=== PATIENT | female | born 1940 | race Caucasian/White ===

== ENCOUNTER 2017-01-10 08:17 | Emergency (ER) | payer OTHER ==
[~2017-01-10] VITALS: Ht 170.2 cm; Wt 80.0 kg
[2017-01-10 08:20] VITALS: BP 158/79; PULSE 76; RESP 18; TEMP 98.4; O2SAT 96
--- NOTE | 2017-01-10 08:38 | PD ---
HPI Chief Complaint: Edema Time Seen by Provider: 08:26 Travel History International Travel<30 days: No Contact w/Intl Traveler<30days: No History of Present Illness HPI Patient is a 76-year-old female with history of hypertension, DVT, since emergency room with complaints of left calf pain and swelling. Patient reports that for the past 3 days, she has noticed increased pain to her left calf with ambulation. Patient reports that pain was so severe initially, it was difficult for her to ambulate. Reports no recent trauma - reports that the only trauma she could think of was that she fell about 1 month ago and caused bruising to her right knee and left thigh. Reports no other trauma other than that. Patient with concerns as about 10-12 years ago, she had a blood clot to her right lower extremity. Patient unsure if she was on any anticoagulation at that time, reports that her doctor gave her some medicine, and symptoms had resolved. Patient reports that should similar symptoms in the past when she had pain to her right lower extremity and was concerned that she may have a DVT. Patient denies any recent travels, denies any long car rides or any recent surgeries or prolonged immobilization. Patient denies any chest pain or shortness of breath at this time. Patient currently not on anticoagulants. 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) Hypertension: Yes Past Surgical History Surgical History: No Previous Surgery Social History Alcohol Use: No Tobacco Use: No Substance Use: No Allergies-Medications (Allergen,Severity, Reaction): Coded Allergies: Keflex (Verified Allergy, Severe, Rash, 01/10/17) Reported Meds & Prescriptions Reported Meds & Active Scripts Active Reported Aspirin 81 Mg Tabdr 81 Mg PO DAILY Lipitor (Atorvastatin Calcium) 40 Mg Tab 40 Mg PO HS Estradiol 0.5 Mg Tab 0.5 Mg PO DAILY Metoprolol Succinate ER 24 HR (Metoprolol Succinate) 25 Mg Tab 25 Mg PO DAILY Review of Systems General / Constitutional: No: Fever Eyes: No: Visual changes HENT: No: Headaches Cardiovascular: No: Chest Pain or Discomfort Respiratory: No: Cough, Shortness of Breath Gastrointestinal: No: Abdominal Pain Genitourinary: No: Dysuria Musculoskeletal: Positive: Cramping, Pain Skin: No Rash Neurologic: No: Weakness Psychiatric: No: Depression Endocrine: No: Polydipsia Hematologic/Lymphatic: No: Easy Bruising Physical Exam Narrative GENERAL: nad, nontoxic Skin: warm/dry with no signs of infection/cellulitis HEAD: Atraumatic. Normocephalic. EYES: Pupils equal and round. No scleral icterus. No injection or drainage. ENT: No nasal bleeding or discharge. Mucous membranes pink and moist. NECK: Trachea midline. No JVD. CARDIOVASCULAR: Regular rate and rhythm. No murmur appreciated. RESPIRATORY: No accessory muscle use. Clear to auscultation. Breath sounds equal bilaterally. GASTROINTESTINAL: Abdomen soft, non-tender, nondistended. Hepatic and splenic margins not palpable. MUSCULOSKELETAL: No obvious deformities. No clubbing. No cyanosis. No edema. Patient with pain to left calf. NEUROLOGICAL: Awake and alert. No obvious cranial nerve deficits. Motor grossly within normal limits. Normal speech. PSYCHIATRIC: Appropriate mood and affect; insight and judgment normal. Data Data Last Documented VS Vital Signs Date Time Temp Pulse Resp B/P Pulse Ox O2 Delivery O2 Flow Rate FiO2 01/10/17 08:37 01/10/17 08:20 98.4 76 18 96 Room Air Orders Basic Metabolic Panel (Bmp) (01/10/17 08:30) Complete Blood Count With Diff (01/10/17 08:30) Prothrombin Time / Inr (Pt) (01/10/17 08:30) Act Partial Throm Time (Ptt) (01/10/17 08:30) Us Leg Venous Doppler Bilat (01/10/17 ) Labs Laboratory Tests Test 01/10/17 08:45 White Blood Count 8.7 TH/MM3 Red Blood Count 4.73 MIL/MM3 Hemoglobin 14.5 GM/DL Hematocrit 43.2 % Mean Corpuscular Volume 91.4 FL Mean Corpuscular Hemoglobin 30.6 PG Mean Corpuscular Hemoglobin 33.5 % Concent Red Cell Distribution Width 13.1 % Platelet Count 242 TH/MM3 Mean Platelet Volume 7.5 FL Neutrophils (%) (Auto) 77.3 % Lymphocytes (%) (Auto) 14.8 % Monocytes (%) (Auto) 4.6 % Eosinophils (%) (Auto) 0.8 % Basophils (%) (Auto) 2.5 % Neutrophils # (Auto) 6.7 TH/MM3 Lymphocytes # (Auto) 1.3 TH/MM3 Monocytes # (Auto) 0.4 TH/MM3 Eosinophils # (Auto) 0.1 TH/MM3 Basophils # (Auto) 0.2 TH/MM3 CBC Comment DIFF FINAL Differential Comment Prothrombin Time 10.8 SEC Prothromb Time International 1.0 RATIO Ratio Activated Partial 25.7 SEC Thromboplast Time Sodium Level 145 MEQ/L Potassium Level 3.9 MEQ/L Chloride Level 106 MEQ/L Carbon Dioxide Level 27.9 MEQ/L Anion Gap 11 MEQ/L Blood Urea Nitrogen 13 MG/DL Creatinine 1.00 MG/DL Estimat Glomerular Filtration 54 ML/MIN Rate Random Glucose 147 MG/DL Calcium Level 9.1 MG/DL MDM Medical Decision Making Medical Screen Exam Complete: Yes Emergency Medical Condition: Yes Interpretation(s) Vital Signs Date Time Temp Pulse Resp B/P Pulse Ox O2 Delivery O2 Flow Rate FiO2 01/10/17 08:20 98.4 76 18 158/79 96 Room Air Differential Diagnosis DVT, muscle strain, electrolyte abnormality Narrative Course Patient is a 76-year-old female who presents to emergency room for evaluation of possible DVT to her left lower extremity. That she is history of DVT to her right lower extremity about 10-12 years ago, patient was unsure if she was on an any anticoagulation at that time. Patient reports that her symptoms to her right lower extremity resolves after some time, which at 3 days ago, she had increased pain to her left calf. Patient reports that pain felt similar to when she had a DVT to her right lower extremity. Patient with no prolonged immobilization, denies chest pain or shortness breath at this time. Patient reports that she is taking an aspirin every several day, in addition to her aspirin, she takes medications for her hypertension and also takes estradiol. Lab work ordered to evaluate for electrolyte abnormality. Ultrasound of legs ordered to evaluate for possible DVT. Laboratory Tests Test 01/10/17 08:45 White Blood Count 8.7 TH/MM3 (4.0-11.0) Red Blood Count 4.73 MIL/MM3 (4.00-5.30) Hemoglobin 14.5 GM/DL (11.6-15.3) Hematocrit 43.2 % (35.0-46.0) Mean Corpuscular Volume 91.4 FL (80.0-100.0) Mean Corpuscular Hemoglobin 30.6 PG (27.0-34.0) Mean Corpuscular Hemoglobin 33.5 % Concent (32.0-36.0) Red Cell Distribution Width 13.1 % (11.6-17.2) Platelet Count 242 TH/MM3 (150-450) Mean Platelet Volume 7.5 FL (7.0-11.0) Neutrophils (%) (Auto) 77.3 % (16.0-70.0) Lymphocytes (%) (Auto) 14.8 % (9.0-44.0) Monocytes (%) (Auto) 4.6 % (0.0-8.0) Eosinophils (%) (Auto) 0.8 % (0.0-4.0) Basophils (%) (Auto) 2.5 % (0.0-2.0) Neutrophils # (Auto) 6.7 TH/MM3 (1.8-7.7) Lymphocytes # (Auto) 1.3 TH/MM3 (1.0-4.8) Monocytes # (Auto) 0.4 TH/MM3 (0-0.9) Eosinophils # (Auto) 0.1 TH/MM3 (0-0.4) Basophils # (Auto) 0.2 TH/MM3 (0-0.2) CBC Comment DIFF FINAL Differential Comment Prothrombin Time 10.8 SEC (9.8-11.6) Prothromb Time International 1.0 RATIO Ratio Activated Partial 25.7 SEC Thromboplast Time (24.3-30.1) Sodium Level 145 MEQ/L (136-145) Potassium Level 3.9 MEQ/L (3.5-5.1) Chloride Level 106 MEQ/L (98-107) Carbon Dioxide Level 27.9 MEQ/L (21.0-32.0) Anion Gap 11 MEQ/L (5-15) Blood Urea Nitrogen 13 MG/DL (7-18) Creatinine 1.00 MG/DL (0.50-1.00) Estimat Glomerular Filtration 54 ML/MIN (>89) Rate Random Glucose 147 MG/DL (74-106) Calcium Level 9.1 MG/DL (8.5-10.1) US: No evidence of deep vein thrombosis and lower extremities. A copy patient's ultrasound report was given to her. Patient instructed to have repeat ultrasound in one week should her symptoms persist. Patient will follow-up with a primary care doctor and will return to emergency room as needed. Diagnosis Primary Impression: Leg cramping Qualified Code: R25.2 - Cramps of left lower extremity Patient Instructions: General Instructions Additional Instructions: Return to the emergency room as needed Please follow-up with your primary care doctor in 2-3 days Please have a repeat ultrasound 1 week if symptoms persist Please bring the copy of your ultrasound as well as your lab work to doctor's office for follow-up Disposition: 01 DISCHARGE HOME Condition: Stable Katerin Wilder DO Jan 10, 2017 08:38
[2017-01-10] MEDS ORDERED: ASPI1TAB69 PO (08:40)
[2017-01-10] MEDS ORDERED: LIPI40TA PO (08:40)
[2017-01-10] MEDS ORDERED: METO25TA6 PO (08:40)
[2017-01-10] MEDS ORDERED: ESTR0.5T PO (08:40)
[2017-01-10 08:57] LABS: AUTOMATED NEUTROPHIL # 6.7 TH/MM3 (1.8-7.7); BASOPHIL # 0.2 TH/MM3 (0-0.2); BASOPHIL % 2.5 % (0.0-2.0); EOSINOPHIL # 0.1 TH/MM3 (0-0.4); EOSINOPHIL % 0.8 % (0.0-4.0); HEMATOCRIT 43.2 % (35.0-46.0); LYMPH % 14.8 % (9.0-44.0); LYMPHOCYTE # 1.3 TH/MM3 (1.0-4.8); MEAN CELL VOLUME 91.4 FL (80.0-100.0); MEAN CORPUSCULAR HEMOGLOBIN 30.6 PG (27.0-34.0); MEAN CORPUSCULAR HGB CONC 33.5 % (32.0-36.0); MONO % 4.6 % (0.0-8.0); NEUT % 77.3 % (16.0-70.0); PLATELET COUNT 242 TH/MM3 (150-450); RED BLOOD COUNT 4.73 MIL/MM3 (4.00-5.30); RED CELL DISTRIBUTION WIDTH 13.1 % (11.6-17.2); WHITE BLOOD COUNT 8.7 TH/MM3 (4.0-11.0)
[2017-01-10 08:58] LABS: HEMO FLAGS DIFF FINAL
[2017-01-10 09:02] LABS: POTASSIUM 3.9 MEQ/L (3.5-5.1)
[2017-01-10 09:05] LABS: BICARBONATE 27.9 MEQ/L (21.0-32.0)
[2017-01-10 09:08] LABS: APTT (PATIENT) 25.7 SEC (24.3-30.1); PROTHROMBIN TIME - PATIENT 10.8 SEC (9.8-11.6)
--- NOTE | 2017-01-10 09:57 | RADHPO ---
EXAM DATE/TIME: 01/10/2017 09:07 [facility] COMPARISON: No previous studies available for comparison. INDICATIONS : Bilateral leg pain. MEDICAL HISTORY : Hypercholesterolemia. Hypothyroidism. Deep venous thrombosis. Hypertension. SURGICAL HISTORY : Hysterectomy.Thyroidectomy. Right breast biopsy. ENCOUNTER: Initial ACUITY: 3 days PAIN SCORE: 4/10 LOCATION: Bilateral legs. TECHNIQUE: Venous ultrasound of the left and right leg was performed from the inguinal ligament to the proximal calf. Real-time, color Doppler and spectral tracing, compression and augmentation techniques were us ed. FINDINGS: RIGHT LEG: There is normal compressibility of the deep venous system from the inguinal region to the proximal ca lf. No echogenic clot is seen in the lumen of the common femoral, femoral, popliteal, and posterior tibial veins. There is a normal response of the venous system to proximal and distal augmentation an d respiration. LEFT LEG: There is normal compressibility of the deep venous system from the inguinal region to the proximal ca lf. No echogenic clot is seen in the lumen of the common femoral, femoral, popliteal, and posterior tibial veins. There is a normal response of the venous system to proximal and distal augmentation an d respiration. CONCLUSION: No evidence of deep venous thrombosis within lower extremities. Nikhil New MD on January 10, 2017 at 9:54 Board Certified Radiologist. This report was verified electronically.
[2017-01-10 10:05] VITALS: BP 131/65; PULSE 67; RESP 14; O2SAT 94
== END 2017-01-10 10:12 | disposition home or self-care (01) ==
LOC: PHED 08:17
DX: R25.2 Cramp and spasm (principal); M79.662 Pain in left lower leg; I10 Essential (primary) hypertension; Z86.718 Personal history of other venous thrombosis and embolism
CPT/HCPCS: 80048; 85025; 85610; 85730; 93970

== ENCOUNTER 2017-01-10 19:13 | Emergency (ER) | payer OTHER ==
[~2017-01-10 19:13] MED LIST: ASPI1TAB69 PO; ESTR0.5T PO; LIPI40TA PO; METO25TA6 PO
== END 2017-01-10 22:08 | disposition left against medical advice (07) ==
LOC: PHED 19:13
DX: L98.8 Other specified disorders of the skin and subcutaneous tissue (principal)
CPT/HCPCS: 99281